=== PATIENT | female | born 1940 | race Caucasian/White ===

== ENCOUNTER 2020-03-18 15:09 | Emergency (ER) | payer MEDICARE, OTHER ==
[2020-03-18 13:07] LABS: ANION GAP 13.3 mEq/L (7-13)
--- NOTE | 2020-03-18 13:20 | CT ---
EXAMINATION: Head wo Cont SEX: Female AGE: 79 years CLINICAL HISTORY: 79-year-old female complaining of multiple HEADACHES a syncopal episode. Scan technique: Volume acquisition of data from the head and brain obtained with patient lying supine on the Siemens multislice scanner [place], [place]. All data archived in the PACS system for storage, reformatting axial/sagittal/coronal planes and study (bone/brain windows). INTERPRETATION: (No comparison exams immediately available) 1. Uniformly thick bony calvarium. No pathologic skeletal lesion, skull fracture, underlying brain contusion or epidural/subdural hematoma. 2. Generalized atrophy pattern symmetric with underlying mirror-image normal ventricular volume. 3. Physiologic midline pineal and symmetric choroid plexus calcifications. Midline falx calcifications. 4. Multiple large areas of decreased attenuation identified throughout the periventricular white matter both cerebral hemispheres characteristic appearance of multi-infarct disease. No Encephalomalacia. 5. No sign of acute intracerebral, intraventricular or subarachnoid bleed. 6. No supratentorial or posterior fossa mass lesion. 7. Cerebellum and brainstem unremarkable for age. 8. Symmetric clear pneumatization of the paranasal and mastoid sinuses. CONCLUSION: Multi-INFARCT ischemic disease. No intracranial mass, hydrocephalus or bleed.
--- NOTE | 2020-03-18 13:24 | CR ---
EXAMINATION: Ribs 2V w Chest Rt SEX: Female AGE: 79 years CLINICAL HISTORY: 79-year-old female recent SYNCOPAL EPISODE complaining of right chest ("lateral rib") PAIN. No comparison films immediately available. Interpretation: (PA/oblique rib detail films) Dorsolumbar scoliosis, multilevel disc disease and hypertrophic spondylosis. No sign of right rib or other thoracic fracture, underlying lung contusion, atelectasis, pleural effusion or pneumothorax on the right. Normal cardiac silhouette and mediastinal width. Tracheobronchial airway unremarkable. No pulmonary vascular congestion, cephalization of flow, alveolar edema or dependent pleural effusion. No lung mass or hilar lymphadenopathy. No lobar pneumonia, atelectasis or collapse. No pneumothorax or pneumomediastinum. CONCLUSION: No right rib fracture or abnormality of the ipsilateral hemithorax. No acute cardiopulmonary abnormality.
[2020-03-18] MEDS: Sodium Chloride 0.9% 1,000 ML IV ONE (13:56)
--- NOTE | 2020-03-18 14:12 | EDM.PDOC ---
ED HPI GENERAL MEDICAL PROBLEM - General Chief Complaint: Syncope Stated Complaint: CLINIC PT Time Seen by Provider: 03/18/20 11:45 Source of Information: Reports: Patient, Provider History Limitations: Reports: No Limitations - History of Present Illness INITIAL COMMENTS - FREE TEXT/NARRATIVE: This 79 yo female patient was sent to the ED by her Primary Care Provider (Inna Wallace) with [facility]. The patient reported to the clinic today due to an episode of syncope that happened yesterday. During the episode, the patient fell to the ground, hit her head and hit her right ribs. The patient was sent to the ED for a complete evaluation. The patient reports she did fall and hit her head yesterday and has some pain to her head and right ribs. The patient reports her blood pressure was low when she was in the clinic today, thus she was sent to the ED. The patient reports she has been having a headache for 2-3 days prior to the syncope episode. Onset Date: 03/17/20 Duration: Improving Location: Reports: Head, Chest (right ribs) Quality: Reports: Ache, Dull Severity: Moderate Improves with: Reports: None Worsens with: Reports: None Context: Reports: Other Associated Symptoms: Reports: No Other Symptoms - Related Data Allergies Allergy/AdvReac Type Severity Reaction Status Date / Time No Known Allergies Allergy Verified 03/18/20 11:54 Home Meds: Home Meds Aspirin [Ecotrin EC] 81 mg PO DAILY 05/03/19 [History] Calcium Carbonate/Vitamin D3 [Calcium 600 + Vit D Tablet] 1 tab PO DAILY 05/03/19 [History] Levothyroxine 125 mcg PO DAILY 05/03/19 [History] Lisinopril/Hydrochlorothiazide [Lisinopril-Hctz 20-12.5 mg Tab] 1 tab PO DAILY 05/03/19 [History] Metoprolol Succinate [Toprol Xl] 50 mg PO DAILY 05/03/19 [History] Triamcinolone Acetonide [Triamcinolone Acetonide 0.1% Crm] 1 applic TOP BID 05/03/19 [History] allopurinoL [Zyloprim] 100 mg PO DAILY 05/03/19 [History] atorvaSTATin [Lipitor] 20 mg PO DAILY 05/03/19 [History] Isosorbide Mononitrate [Imdur] 30 mg PO DAILY 03/18/20 [History] Past Medical History HEENT History: Reports: Impaired Vision Other HEENT History: wears glasses Cardiovascular History: Reports: High Cholesterol, Hypertension, Other (See Below) Other Cardiovascular History: coratid artary Respiratory History: Reports: None Gastrointestinal History: Reports: None Genitourinary History: Reports: None STREET CONTRACTOR History: Reports: None Musculoskeletal History: Reports: Arthritis, Gout Neurological History: Reports: None Psychiatric History: Reports: None Endocrine/Metabolic History: Reports: None Hematologic History: Reports: None Immunologic History: Reports: None Oncologic (Cancer) History: Reports: None Dermatologic History: Reports: None - Infectious Disease History Infectious Disease History: Reports: Chicken Pox, Measles, Mumps - Past Surgical History Head Surgeries/Procedures: Reports: None Social & Family History - Tobacco Use Smoking Status *Q: Former Smoker Years of Tobacco use: 20 Packs/Tins Daily: 1 Used Tobacco, but Quit: Yes Month/Year Tobacco Last Used: august Second Hand Smoke Exposure: No - Caffeine Use Caffeine Use: Reports: Coffee - Recreational Drug Use Recreational Drug Use: No ED ROS GENERAL - Review of Systems Review Of Systems: Comprehensive ROS is negative, except as noted in HPI. ED EXAM, GENERAL - Physical Exam Exam: See Below Exam Limited By: No Limitations General Appearance: Alert, WD/WN, Moderate Distress Eye Exam: Bilateral Eye: EOMI, Normal Inspection, PERRL Ears: Normal External Exam, Normal Canal, Hearing Grossly Normal, Normal TMs Nose: Normal Inspection, Normal Mucosa, No Blood Throat/Mouth: Normal Inspection, Normal Lips, Normal Teeth, Normal Gums, Normal Oropharynx, Normal Voice, No Airway Compromise Head: Normocephalic, Other (Bruising to her right forehead) Neck: Normal Inspection, Supple, Non-Tender, Full Range of Motion Respiratory/Chest: No Respiratory Distress, Lungs Clear, Normal Breath Sounds, No Accessory Muscle Use, Other (Tenderness to the right lateral ribs) Cardiovascular: Normal Peripheral Pulses, Regular Rate, Rhythm, No Edema, No Gallop, No JVD, No Murmur, No Rub GI/Abdominal: Normal Bowel Sounds, Soft, Non-Tender, No Organomegaly, No Distention, No Abnormal Bruit, No Mass (Female) Exam: Deferred Rectal (Female) Exam: Deferred Extremities: Normal Inspection, Normal Range of Motion, Non-Tender, Normal Capillary Refill, No Pedal Edema Neurological: Alert, Oriented, CN II-XII Intact, Normal Cognition, Normal Gait, Normal Reflexes, No Motor/Sensory Deficits Psychiatric: Normal Affect, Normal Mood Skin Exam: Warm, Dry, Intact, Normal Color, No Rash Lymphatic: No Adenopathy Course - Vital Signs Last Recorded V/S: Last Vital Signs Temp 35.9 C L 03/18/20 11:38 Pulse 86 03/18/20 11:38 Resp 16 03/18/20 11:38 BP 79/41 L 03/18/20 11:38 Pulse Ox 100 03/18/20 11:38 Orthostatic Blood Pressure [ 144/65 Sitting] Orthostatic Blood Pressure [ 126/64 Standing] Orthostatic Blood Pressure [ 137/55 Supine] - Orders/Labs/Meds Orders: Active Orders 24 hr Category Date Time Status EKG Documentation Completion [RC] STAT Care 03/18/20 12:21 Active Labs: Laboratory Tests 03/18/20 03/18/20 Range/Units 12:39 12:39 WBC 3.6 L (5.0-10.0) 10^3/uL RBC 4.31 (4.2-5.4) 10^6/uL Hgb 13.3 (12.0-16.0) g/dL Hct 39.0 (37.0-47.0) % MCV 90.5 (80-100) fL MCH 30.9 (27.0-34.0) pg MCHC 34.1 (33.0-35.0) g/dL Plt Count 99 L (150-450) 10^3/uL Neut % (Auto) 61.0 (42.2-75.2) % Lymph % (Auto) 22.5 (20.5-50.1) % [place] % (Auto) 15.6 H (2-8) % Eos % (Auto) 0.3 L (1.0-3.0) % Baso % (Auto) 0.6 (0.0-1.0) % Sodium 135 L (136-145) mmol/L Potassium 4.3 (3.5-5.1) mmol/L Chloride 99 (98-107) mmol/L Carbon Dioxide 27 (21-32) mmol/L Anion Gap 13.3 H (7-13) mEq/L BUN 33 H (7-18) mg/dL Creatinine 1.93 H (0.55-1.02) mg/dL Est Cr Clr Drug Dosing 22.13 mL/min Estimated GFR (MDRD) 25 BUN/Creatinine Ratio 17.1 (No establ ref range) Glucose 110 H (74-99) mg/dL Calcium 9.0 (8.5-10.1) mg/dL Total Bilirubin 0.9 (0.2-1.0) mg/dL AST 48 H (15-37) U/L ALT 40 (14-59) U/L Alkaline Phosphatase 51 (46-116) U/L Troponin I 0.042 (0.000-0.056) ng/mL Total Protein 6.3 L (6.4-8.2) g/dL Albumin 3.5 (3.4-5.0) g/dL Globulin 2.8 Albumin/Globulin Ratio 1.2 Meds: Medications Discontinued Medications Generic Name Dose Route Start Last Admin Trade Name Freq PRN Reason Stop Dose Admin Sodium Chloride 1,000 mls @ 999 mls/hr 03/18/20 13:34 03/18/20 13:56 Normal Saline IV 03/18/20 14:34 999 mls/hr .BOLUS ONE Administration - Re-Assessments/Exams Free Text/Narrative Re-Assessment/Exam: 03/18/20 14:12 The patient's reported to the ED and was brought to the patient with results explained. Departure - Departure Time of Disposition: 15:21 Disposition: Home, Self-Care 01 Condition: Fair Clinical Impression: Dehydration Hypotension Qualifiers: Hypotension type: unspecified hypotension type Qualified Code(s): I95.9 - Hypotension, unspecified Syncope Qualifiers: Syncope type: unspecified Qualified Code(s): R55 - Syncope and collapse Instructions: Syncope, [id number], Hypotension, [id number], Dehydration, Adult, [id number] Forms: ED Department Discharge Care Plan Goals: The patient was advised of the examination, lab, EKG, CT and x-ray results during the visit. The patient was given IV fluids which increased her blood pressure and treated her symptoms. The patient was encouraged to follow-up with her primary care facility for continued evaluation and management. If the patient has any addition symptoms or concerns, the patient should either return to the emergency department or visit her primary care facility. Sepsis Event Note (ED) - Evaluation Sepsis Screening Result: No Definite Risk - Focused Exam Vital Signs: Vital Signs Temp Pulse Resp BP Pulse Ox 03/18/20 11:38 35.9 C L 86 16 79/41 L 100 - My Orders Last 24 Hours: My Active Orders 03/18/20 12:21 EKG Documentation Completion [RC] STAT - Assessment/Plan Last 24 Hours: My Active Orders 03/18/20 12:21 EKG Documentation Completion [RC] STAT
== END 2020-03-18 15:35 | disposition home or self-care (01) ==
LOC: DL.ED 15:09
DX: E86.0 Dehydration (principal); S00.83XA Contusion of other part of head, initial encounter; I95.9 Hypotension, unspecified; R07.81 Pleurodynia; I10 Essential (primary) hypertension; E78.00 Pure hypercholesterolemia, unspecified; M10.9 Gout, unspecified; Z87.891 Personal history of nicotine dependence; Z79.82 Long term (current) use of aspirin; Z79.899 Other long term (current) drug therapy; W19.XXXA Unspecified fall, initial encounter; W22.8XXA Striking against or struck by other objects, initial encounter
CPT/HCPCS: 36415; 70450; 71101; 80053; 84484; 85025; 93005; 96360; 99285; J7030

== ENCOUNTER 2023-02-07 16:37 | Emergency (ER) | payer MEDICARE, OTHER | END 2023-02-07 18:25 | disposition home or self-care (01) | LOC: DL.ED 16:37 | DX: S80.01XA Contusion of right knee, initial encounter (principal); M54.50 Low back pain, unspecified; E78.00 Pure hypercholesterolemia, unspecified; I10 Essential (primary) hypertension; Z79.82 Long term (current) use of aspirin; Z79.899 Other long term (current) drug therapy; W18.30XA Fall on same level, unspecified, initial encounter | CPT/HCPCS: 72100; 99283 ==

== ENCOUNTER 2023-10-27 06:59 | Day surgery (SDC) | payer MEDICARE, OTHER ==
[2023-10-27] MEDS ORDERED: Acetaminophen 325 MG Tab PO PRN (07:00)
[2023-10-27] MEDS ORDERED: Ondansetron 4 MG/2 ML SDV IVPUSH PRN (07:00)
[2023-10-27] MEDS ORDERED: Acetaminophen/Codeine 300-30 MG Tab PO PRN (07:00)
[2023-10-27] MEDS: Proparacaine 0.5% Ophth Soln 15 ML Bottle EYELF ONE ×2 (07:22→08:14)
[2023-10-27] MEDS: Povidone-Iodine 5% Sterile Ophth Soln 30 ML Bottle EYELF ONE ×2 (07:23→08:15)
[2023-10-27] MEDS: Moxifloxacin 0.5% Ophth Soln 3 ML Bottle EYELF ONE (07:23)
[2023-10-27] MEDS: Phenylephrine 10% Ophth Soln 5 ML Bot EYELF PRN (07:24)
[2023-10-27] MEDS: Tropicamide 1% Ophth Soln 15 ML Bottle EYELF ONE (07:24)
[2023-10-27] MEDS: Timolol Maleate 0.5% Ophth Soln 5 ML Bottle EYELF ONE (07:25)
[2023-10-27] MEDS: Cataract Ophth Solution EYELF ONE (07:26)
[2023-10-27] MEDS: Sodium Chloride 0.9% 10 ML Syringe FLUSH PRN (07:30)
[2023-10-27] MEDS: Lidocaine 1% 30 ML SDV ONE (08:22)
[2023-10-27] MEDS: Balanced Salt Solution Ophth Irrig 500 ML Bottle IOCULAR ONE (08:23)
[2023-10-27] MEDS: Vancomycin 500 MG SDV EYELF ONE (08:24)
[2023-10-27] MEDS: Chondroitin Sulfate/Hyaluronate Sodium Ophth Inj 0.75 ML Syringe EYELF ONE (08:25)
[2023-10-27] MEDS: Acetylcholine 20 MG/2 ML Intraocular Inj Kit EYELF ONE (08:26)
[2023-10-27] MEDS: Chondroitin Sulfate/Hyaluronate Sodium Ophth Inj 0.5 ML Syringe IOCULAR ONE (08:27)
[2023-10-27] MEDS: Diclofenac Sodium 0.1% Ophth Soln 5 ML Bottle EYELF ONE (08:28)
[2023-10-27] MEDS: Apraclonidine 0.5% Ophth Soln 5 ML Bot EYELF ONE (08:28)
[2023-10-27] MEDS: Dexamethasone/Neomycin/Polymyxin B Ophth Oint 3.5 GM Tube EYELF ONE (08:29)
== END 2023-10-27 09:10 | disposition home or self-care (01) ==
LOC: DL.SDS 06:59
PROVIDERS: ATTEND Ophthalmology
DX: H25.812 Combined forms of age-related cataract, left eye (principal); H40.1122 Primary open-angle glaucoma, left eye, moderate stage; I65.22 Occlusion and stenosis of left carotid artery; E78.5 Hyperlipidemia, unspecified; I12.9 Hypertensive chronic kidney disease with stage 1 through stage 4 chronic kidney disease, or unspecified chronic kidney disease; N18.32 Chronic kidney disease, stage 3b; E03.9 Hypothyroidism, unspecified; M81.0 Age-related osteoporosis without current pathological fracture; Z90.49 Acquired absence of other specified parts of digestive tract; Z90.89 Acquired absence of other organs; Z98.890 Other specified postprocedural states; Z87.891 Personal history of nicotine dependence; Z79.899 Other long term (current) drug therapy
CPT/HCPCS: A9270-GY; C1783; J3370; J3490; V2632

== ENCOUNTER 2023-11-10 09:04 | Day surgery (SDC) | payer MEDICARE, OTHER ==
[~2023-11-10 09:04] MED LIST: Acetaminophen 325 MG Tab PO PRN; Acetaminophen/Codeine 300-30 MG Tab PO PRN; Ondansetron 4 MG/2 ML SDV IVPUSH PRN
[2023-11-10] MEDS ORDERED: Dexamethasone 4 MG/ML SDV IV ONE (09:05)
[2023-11-10] MEDS ORDERED: Sodium Chloride 0.9% 10 ML Syringe IV ONE (09:05)
[2023-11-10] MEDS ORDERED: Midazolam 1 MG/ML 2 ML SDV IV ONE (09:05)
[2023-11-10] MEDS: Proparacaine 0.5% Ophth Soln 15 ML Bottle EYERT ONE ×3 (09:17→09:50)
[2023-11-10] MEDS: Moxifloxacin 0.5% Ophth Soln 3 ML Bottle EYERT ONE (09:18)
[2023-11-10] MEDS: Tropicamide 1% Ophth Soln 15 ML Bottle EYERT ONE (09:19)
[2023-11-10] MEDS: Povidone-Iodine 5% Sterile Ophth Soln 30 ML Bottle EYERT ONE (09:19)
[2023-11-10] MEDS: Timolol Maleate 0.5% Ophth Soln 5 ML Bottle EYERT ONE (09:20)
[2023-11-10] MEDS: Phenylephrine 10% Ophth Soln 5 ML Bot EYERT PRN (09:20)
[2023-11-10] MEDS: Cataract Ophth Solution EYERT ONE (09:21)
[2023-11-10] MEDS: Sodium Chloride 0.9% 10 ML Syringe FLUSH PRN (09:22)
[2023-11-10] MEDS: Balanced Salt Solution Ophth Irrig 15 ML Bottle EYERT ONE ×2 (09:38→09:50)
[2023-11-10] MEDS: Lidocaine 1% 30 ML SDV ONE ×2 (09:39→09:56)
[2023-11-10] MEDS: Vancomycin 500 MG SDV EYERT ONE ×2 (09:39→09:58)
[2023-11-10] MEDS: Balanced Salt Solution Ophth Irrig 500 ML Bottle IOCULAR ONE ×2 (09:39→09:58)
[2023-11-10] MEDS: Chondroitin Sulfate/Hyaluronate Sodium Ophth Inj 0.75 ML Syringe EYERT ONE ×2 (09:40→09:58)
[2023-11-10] MEDS: Diclofenac Sodium 0.1% Ophth Soln 5 ML Bottle EYERT ONE ×2 (09:40→10:09)
[2023-11-10] MEDS: Apraclonidine 0.5% Ophth Soln 5 ML Bot EYERT ONE ×3 (09:40→10:09)
[2023-11-10] MEDS: Dexamethasone/Neomycin/Polymyxin B Ophth Oint 3.5 GM Tube EYERT ONE ×2 (09:41→10:09)
[2023-11-10] MEDS: Dexamethasone 4 MG/ML SDV ONE (10:01)
== END 2023-11-10 10:51 | disposition home or self-care (01) ==
LOC: DL.SDS 09:04
PROVIDERS: ATTEND Ophthalmology
DX: H25.811 Combined forms of age-related cataract, right eye (principal); E78.5 Hyperlipidemia, unspecified; H40.1131 Primary open-angle glaucoma, bilateral, mild stage; I10 Essential (primary) hypertension; N18.30 Chronic kidney disease, stage 3 unspecified; E03.9 Hypothyroidism, unspecified; Z87.891 Personal history of nicotine dependence; Z79.899 Other long term (current) drug therapy
CPT/HCPCS: 00142; 99100; A9270-GY; C1783; J1100; J2250; J3370; J3490; V2632